=== PATIENT | male | born 1995 | race Caucasian/White ===

== ENCOUNTER 2018-02-02 18:44 | Emergency (ER) | payer MEDICAID, OTHER ==
[~2018-02-02] VITALS: Ht 172.7 cm; Wt 75.8 kg
[~2018-02-02 18:44] MED LIST: HYDR-569 PO; KETO10TA2 PO; NO HOME MEDS; ONDA4TAB6 PO
[2018-02-02 18:58] VITALS: BP 134/80
[2018-02-02] MEDS ORDERED: LIDOcaine 1.5% w/epinephrine 1:200,000 5ml ampul IJ ONE (19:20)
[2018-02-02] MEDS ORDERED: TETanus/Pertussis (Acell)/Diphther VAC/PF (Tdap-Adult) 0.5ml syringe IM ONE (19:20)
== END 2018-02-02 19:46 | disposition home or self-care (01) ==
LOC: ER 18:45
DX: L03.011 Cellulitis of right finger (principal)
CPT/HCPCS: 26011; 90471; 90715; 99284; J3490